=== PATIENT | male | born 1965 | race Caucasian/White ===

== ENCOUNTER 2018-05-16 07:54 | Emergency (ER) | payer OTHER ==
[~2018-05-16] VITALS: Ht 180.3 cm; Wt 102.1 kg
[2018-05-16] MEDS ORDERED: IPRATRPIUM/ALBUTEROL 0.5/2.5MG 3 ML NEBU. NEB ONE (08:15)
[2018-05-16] MEDS ORDERED: methylPREDNISolone SOD SUCC PF 125 MG/2 ML VIAL. IV ONE (08:15)
[2018-05-16] MEDS ORDERED: IV NORMAL SALINE 1000ML BAG 1,000 ML IV ONE (08:15)
--- NOTE | 2018-05-16 08:25 | PHYS DOC ---
Past Medical History Past Medical History: Other Additional Past Medical Histor: gout Past Surgical History: Appendectomy Additional Past Surgical Histo: colon resection "1 foot taken out" Alcohol Use: Occasionally Drug Use: None Adult General Chief Complaint Chief Complaint: Congestion HPI HPI Patient is a 53 year old male with history of hypertension presenting with 3 weeks of cough occasional yellow sputum he has been on azithromycin for 4 days it's not helping he has an inhaler that does not help he has really been sick for 3 weeks but it is worse the last 2 days spell so shortness of breath really no chest pain he did have a fever here in the emergency room the symptoms are moderate there slowly worsening with time no other exacerbating factors. Review of Systems Review of Systems Constitutional: Eyes: Denies change in visual acuity, redness, or eye pain [] HENT: Respiratory: Cardiovascular: No additional information not addressed in HPI [] Musculoskeletal: Denies back pain or joint pain [] Integument: Denies rash or skin lesions [] Neurologic: Denies headache, focal weakness or sensory changes [] Endocrine: Denies polyuria or polydipsia [] All other systems were reviewed and found to be within normal limits, except as documented in this note. Current Medications Current Medications Current Medications Medications (Trade) Dose Ordered Sig/Nnamdi Start Time Stop Time Status Last Admin Dose Admin Acetaminophen (Tylenol) 1,000 mg 1X ONCE 05/16/18 08:45 05/16/18 08:47 DC 05/16/18 08:52 1,000 MG Albuterol/ Ipratropium (Duoneb) 3 ml 1X ONCE 05/16/18 08:15 05/16/18 08:16 DC 05/16/18 08:32 3 ML Ketorolac Tromethamine (Toradol 15mg Vial) 15 mg 1X ONCE 05/16/18 08:45 05/16/18 08:47 DC 05/16/18 08:51 15 MG Methylprednisolone Sodium Succinate (SOLU-Medrol 125MG VIAL) 125 mg 1X ONCE 05/16/18 08:15 05/16/18 08:16 DC 05/16/18 08:52 125 MG Sodium Chloride 1,000 ml @ 1,000 mls/hr 1X ONCE 05/16/18 08:15 05/16/18 09:14 DC 05/16/18 08:51 1,000 MLS/HR Allergies Allergies Allergies Coded Allergies Type Severity Reaction Last Updated Verified Metronidazole HCl Allergy Swelling 07/22/13 Yes metronidazole Allergy Swelling 07/22/13 Yes Physical Exam Physical Exam Constitutional: Well developed, well nourished, mild distress, non-toxic appearance. [] HENT: Normocephalic, atraumatic, bilateral external ears normal, oropharynx moist, no oral exudates, nose normal. [] Eyes: PERRLA, EOMI, conjunctiva normal, no discharge. [] Neck: Normal range of motion, no tenderness, supple, no stridor. [] Cardiovascular: Mild tachycardia no definite murmurs Lungs & Thorax: Rhonchi left lung base mild coarse breath sounds bilaterally Abdomen: Bowel sounds normal, soft, no tenderness, no masses, no pulsatile masses. [] Skin: Warm, dry, no erythema, no rash. [] Back: No tenderness, no CVA tenderness. [] Extremities: No tenderness, no cyanosis, no clubbing, ROM intact, no edema. [] Tenderness Neurologic: Alert and oriented X 3, normal motor function, normal sensory function, no focal deficits noted. [] Psychologic: Affect normal, judgement normal, mood normal. [] Current Patient Data Vital Signs Vital Signs Date Time Temp Pulse Resp B/P (MAP) Pulse Ox O2 Delivery O2 Flow Rate FiO2 05/16/18 08:36 101.1 115 30 176/98 (124) 96 Room Air 101.1 Lab Values Laboratory Tests Test 05/16/18 08:25 05/16/18 09:24 White Blood Count 7.8 x10^3/uL (4.0-11.0) Red Blood Count 4.41 x10^6/uL (4.30-5.70) Hemoglobin 12.9 g/dL (13.0-17.5) L Hematocrit 38.5 % (39.0-53.0) L Mean Corpuscular Volume 87 fL (79-100) Mean Corpuscular Hemoglobin 29 pg (25-35) Mean Corpuscular Hemoglobin Concent 33 g/dL (31-37) Red Cell Distribution Width 13.7 % (11.5-14.5) Platelet Count 259 x10^3/uL (140-400) Neutrophils (%) (Auto) 71 % (31-73) Lymphocytes (%) (Auto) 12 % (24-48) L Monocytes (%) (Auto) 14 % (0-9) H Eosinophils (%) (Auto) 3 % (0-3) Basophils (%) (Auto) 1 % (0-3) Neutrophils # (Auto) 5.5 x10^3uL (1.8-7.7) Lymphocytes # (Auto) 0.9 x10^3/uL (1.0-4.8) L Monocytes # (Auto) 1.1 x10^3/uL (0.0-1.1) Eosinophils # (Auto) 0.2 x10^3/uL (0.0-0.7) Basophils # (Auto) 0.0 x10^3/uL (0.0-0.2) Sodium Level 137 mmol/L (136-145) Potassium Level 4.0 mmol/L (3.5-5.1) Chloride Level 103 mmol/L (98-107) Carbon Dioxide Level 27 mmol/L (21-32) Anion Gap 7 (6-14) Blood Urea Nitrogen 14 mg/dL (8-26) Creatinine 1.2 mg/dL (0.7-1.3) Estimated GFR (Cockcroft-Gault) 62.9 BUN/Creatinine Ratio 12 (6-20) Glucose Level 112 mg/dL (70-99) H Lactic Acid Level 1.2 mmol/L (0.4-2.0) Calcium Level 8.8 mg/dL (8.5-10.1) Total Bilirubin 0.3 mg/dL (0.2-1.0) Aspartate Amino Transferase (AST) 25 U/L (15-37) Alanine Aminotransferase (ALT) 40 U/L (16-63) Alkaline Phosphatase 88 U/L (46-116) Troponin I Quantitative < 0.017 ng/mL (0.000-0.055) SX-Gyv-F-Type Natriuretic Peptide 16 pg/mL (0-124) Total Protein 7.6 g/dL (6.4-8.2) Albumin 3.7 g/dL (3.4-5.0) Albumin/Globulin Ratio 0.9 (1.0-1.7) L Influenza Type A Antigen Negative (NEGATIVE) Influenza Type B Antigen Positive (NEGATIVE) Laboratory Tests 05/16/18 08:25 Laboratory Tests 05/16/18 08:25 EKG EKG []Suspect sinus tachycardia rate of [address] changes noted laterally no acute ischemic changes otherwise noted. Radiology/Procedures Radiology/Procedures [] Impressions: FINDINGS: Heart is normal in size. Small linear opacity seen in the right lung base. Otherwise, lungs are clear. No pneumothorax or pleural effusion. Visualized bony thorax is within normal limits. IMPRESSION: Minimal right basilar subsegmental atelectasis. Electronically signed by: Reggie Ruano DO (05/16/2018 8:40 AM) [facility] DICTATED and SIGNED BY: REGGIE RUANO DO DATE: 05/16/1868 Course & Med Decision Making Course & Med Decision Making Pertinent Labs and Imaging studies reviewed. (See chart for details) []53-year-old male appears younger than stated age history of hypertension presenting with 3 weeks of upper respiratory symptoms here his cough rhonchi left lung base fever in the emergency room usual workup chest x-ray blood cultures lactate rule out pulmonary edema which seems less likely based on history albuterol was given Solu-Medrol was given. Final plan: Influenza noted to be positive patient was feeling much better after treatment in the emergency room heart rate came down into the 90s he was able to feel much less short of breath on my reevaluation he was no longer tachypneic. He is well-appearing I think he can go home with Tamiflu and prednisone he is finishing azithromycin right now no pneumonia seen on x-ray think this is more likely influenza with reactive airway disease. Return precautions discussed Dragon Disclaimer Dragon Disclaimer This electronic medical record was generated, in whole or in part, using a voice recognition dictation system. Departure Departure Impression: Primary Impression: Influenza Disposition: 01 HOME, SELF-CARE Condition: STABLE Referrals: MELISSA ASTUDILLO MD (PCP) Scripts Prednisone (PREDNISONE) 50 Mg Tablet 1 TAB PO DAILY, #5 TAB Prov: HANS SAENZ MD 05/16/18 Oseltamivir Phosphate (TAMIFLU) 75 Mg Capsule 1 CAP PO BID, #10 CAP Prov: HANS SAENZ MD 05/16/18 HANS SAENZ MD May 16, 2018 08:25
[2018-05-16 08:36] VITALS: BP 176/98
[2018-05-16 08:41] LABS: BASO % 1 % (0-3); EOS # 0.2 x10^3/uL (0.0-0.7); EOS % 3 % (0-3); HEMATOCRIT 38.5 % (39.0-53.0); HEMOGLOBIN 12.9 g/dL (13.0-17.5); LYMPH # 0.9 x10^3/uL (1.0-4.8); LYMPH % 12 % (24-48); MEAN CORPUSCULAR HEMOGLOBIN 29 pg (25-35); MEAN CORPUSCULAR HGB CONC 33 g/dL (31-37); MEAN CORPUSCULAR VOLUME 87 fL (79-100); MONO # 1.1 x10^3/uL (0.0-1.1); MONO % 14 % (0-9); NEUT # 5.5 x10^3uL (1.8-7.7); NEUT % 71 % (31-73); PLATELET COUNT 259 x10^3/uL (140-400); RED BLOOD COUNT 4.41 x10^6/uL (4.30-5.70); RED CELL DISTRIBUTION WIDTH 13.7 % (11.5-14.5); WHITE BLOOD COUNT 7.8 x10^3/uL (4.0-11.0)
[2018-05-16] MEDS ORDERED: ACETAMINOPHEN 500 MG TABLET PO ONE (08:45)
[2018-05-16] MEDS ORDERED: KETOROLAC 15 MG/ML VIAL. IV ONE (08:45)
--- NOTE | 2018-05-16 08:45 | RAD ---
Indication:COUGH, SOA, FEVER X3 WEEKS TECHNIQUE:Portable AP chest X-ray COMPARISON:None FINDINGS: Heart is normal in size. Small linear opacity seen in the right lung base. Otherwise, lungs are clear. No pneumothorax or pleural effusion. Visualized bony thorax is within normal limits. IMPRESSION: Minimal right basilar subsegmental atelectasis. Electronically signed by: Reggie Gleason DO (05/16/2018 8:40 AM) [facility]
[2018-05-16 08:51] LABS: CALCIUM 8.8 mg/dL (8.5-10.1); CREATININE 1.2 mg/dL (0.7-1.3); GFR 62.9
[2018-05-16 08:57] LABS: ALBUMIN 3.7 g/dL (3.4-5.0); ALBUMIN/GLOBULIN RATIO 0.9 (1.0-1.7); TOTAL BILIRUBIN 0.3 mg/dL (0.2-1.0); TOTAL PROTEIN 7.6 g/dL (6.4-8.2)
[2018-05-16 10:07] LABS: INFLUENZA A PATIENT NEGATIVE (NEGATIVE); INFLUENZA B PATIENT POSITIVE (NEGATIVE)
[2018-05-16] MEDS ORDERED: OSEL75CA PO (10:10)
[2018-05-16] MEDS ORDERED: PRED50TA PO (10:10)
--- NOTE | 2018-05-18 06:56 | EKG ---
[facility] [address] [place] [address] Test Date: 2018-05-16 Test Time: 08:52:09 Pat Name: RYAN ALBRECHT Department: Room: Gender: M Human Resources Records Clerk: : 1965 Requested By: HANS SAENZ Order Number: [id number] Reading MD: Hollis Robbins MD Measurements Intervals [place] Rate: 104 P: -134 DE: 110 QRS: -2 QRSD: 92 T: 67 QT: 310 QTc: 413 Interpretive Statements SR Electronically Signed On 05-18-2018 10:08:29 [employer] by Hollis Robbins MD
== END 2018-05-16 10:54 | disposition home or self-care (01) ==
LOC: ER 07:54
DX: J11.1 Influenza due to unidentified influenza virus with other respiratory manifestations (principal); Z90.49 Acquired absence of other specified parts of digestive tract; Z88.8 Allergy status to other drugs, medicaments and biological substances
CPT/HCPCS: 36415; 71045; 80053; 83605; 83880; 84484; 85025; 87040; 87804; 93005; 94640; 96374; 96375; 99284; J1885; J2930; J7030; J7620

== ENCOUNTER 2018-09-18 16:25 | Emergency (ER) | payer OTHER ==
[~2018-09-18] VITALS: Ht 172.7 cm; Wt 93.0 kg
[~2018-09-18 16:25] MED LIST: OSEL75CA PO; PRED50TA PO
--- NOTE | 2018-09-18 17:18 | PHYS DOC ---
Past Medical History Past Medical History: Hypertension Additional Past Medical Histor: gout, Low Testosterone Past Surgical History: Appendectomy, Cholecystectomy Additional Past Surgical Histo: colon resection "1 foot taken out" Alcohol Use: None Drug Use: None Adult General Chief Complaint Chief Complaint: FOREIGN BODY HPI HPI Patient is a 53 year old male with history of hypertension who presents to the ED today concerned he could have his testosterone needle stuck in his right thigh, patient states he was injecting testosterone today when he believes the needle remained in the thigh. Review of Systems Review of Systems Constitutional: Denies fever or chills [] Musculoskeletal: Denies back pain or joint pain [] Integument: Reports testosterone needle stuck in his right thigh Neurologic: Denies headache, focal weakness or sensory changes [] All other systems were reviewed and found to be within normal limits, except as documented in this note. Current Medications Current Medications Current Medications Medications (Trade) Dose Ordered Sig/Nnamdi Start Time Stop Time Status Last Admin Dose Admin Diphtheria/ Tetanus/Acell Pertussis (Boostrix) 0.5 ml ONCE ONCE 09/18/18 17:30 09/18/18 17:31 DC Allergies Allergies Allergies Coded Allergies Type Severity Reaction Last Updated Verified Metronidazole HCl Allergy Swelling 07/22/13 Yes metronidazole Allergy Swelling 07/22/13 Yes Physical Exam Physical Exam Constitutional: Well developed, well nourished, no acute distress, non-toxic appearance. [] Skin: Right mid ventral thigh with a puncture wound consistent with needlestick. No obvious palpable needle noted. Neurovascular exam is intact to the right thigh and right lower extremity. +2 right pedal pulse. Cap refill less than 2 seconds the right lower extremity. Back: No tenderness, no CVA tenderness. [] Extremities: No tenderness, no cyanosis, no clubbing, ROM intact, no edema. [] Neurologic: Alert and oriented X 3, normal motor function, normal sensory function, no focal deficits noted. [] Psychologic: Affect normal, judgement normal, mood normal. [] Current Patient Data Vital Signs Vital Signs Date Time Temp Pulse Resp B/P (MAP) Pulse Ox O2 Delivery O2 Flow Rate FiO2 09/18/18 16:30 98.3 89 17 188/113 (138) 97 Room Air 98.3 EKG EKG [] Radiology/Procedures Radiology/Procedures [] Course & Med Decision Making Course & Med Decision Making Pertinent Labs and Imaging studies reviewed. (See chart for details) This is a 53-year-old male patient presenting to the ED today concerned his t estosterone needle stuck in the right thigh. Tetanus updated. Right femur xrays are negative. Nursing staff was assessing the syringe patient used and found the need in the syringe safety cap. Patient was given tetanus shot and discharged to home. Dragon Disclaimer Dragon Disclaimer This electronic medical record was generated, in whole or in part, using a voice recognition dictation system. Departure Departure Impression: Primary Impression: Foreign body in skin Disposition: 01 HOME, SELF-CARE Condition: STABLE Referrals: MELISSA ASTUDILLO MD (PCP) Follow up with your doctor in 1-2 weeks as needed Patient Instructions: Foreign Body-Brief Additional Instructions: You were evaluated in the emergency room, there is no needle in your right thigh. Keep the area clean and dry. Your tetanus was updated. Follow-up with your doctor as needed. GAURAV ATKINS APRN September 18, 2018 17:18
[2018-09-18] MEDS ORDERED: DIPHTH,PERTUSS(ACELL),TET TOX 0.5 ML DISP.SYRIN. VAX IM ONE (17:30)
[2018-09-18 17:38] VITALS: BP 169/87
--- NOTE | 2018-09-19 07:58 | RAD ---
Examination: 2 views of the right femur HISTORY: History of needle broke in the thigh. COMPARISON: None available FINDINGS: The alignment of the femur grossly appears unremarkable. There is no acute fracture identified. No evidence of radiopaque foreign body within the visualized thigh region. IMPRESSION: No evidence of radiopaque foreign body identified in the region. Electronically signed by: Lionel Greer MD (09/19/2018 7:55 AM) [facility]
== END 2018-09-18 17:55 | disposition home or self-care (01) ==
LOC: ER 16:25
DX: S70.351A Superficial foreign body, right thigh, initial encounter (principal); I10 Essential (primary) hypertension; M10.9 Gout, unspecified; Z88.8 Allergy status to other drugs, medicaments and biological substances; X58.XXXA Exposure to other specified factors, initial encounter; Y93.89 Activity, other specified; Y92.89 Other specified places as the place of occurrence of the external cause; Y99.8 Other external cause status
CPT/HCPCS: 73552; 90471; 90715; 99284

== ENCOUNTER 2020-07-15 09:41 | Emergency (ER) | payer BC ==
[~2020-07-15] VITALS: Ht 170.2 cm; Wt 95.0 kg
[2020-07-15] MEDS ORDERED: ORPHENADRINE CITRATE 60 MG/2 ML VIAL. IM ONE (10:00)
[2020-07-15] MEDS ORDERED: KETOROLAC 60 MG/2 ML VIAL. IM ONE (10:00)
--- NOTE | 2020-07-15 10:03 | ED.ADGEN ---
Past Medical History Past Medical History: Hypertension Additional Past Medical Histor: gout, Low Testosterone Past Surgical History: Appendectomy, Cholecystectomy Additional Past Surgical Histo: colon resection "1 foot taken out" Smoking Status: Never Smoker Alcohol Use: None Drug Use: None General Adult EDM: Chief Complaint: BACK PAIN - NO INJURY HPI: HPI: Patient is a 55-year-old previously healthy male who presents to the emergency room complaining of left-sided thoracic back pain. He states that this started during physical therapy a couple weeks ago and he has tried multiple things without any relief. He states that he has a strong family history of multiple cancers and recently had a friend from bone cancer in the back. He wants to make sure that he does not have any kind of cancer. He is able to ambulate. He denies any numbness or weakness. He has never been an IV drug user. He does not have any kind of fever. Pain does limit his mobility. There is some radiation of the pain up into his back. He denies any midline pain. Review of Systems: Review of Systems: Complete ROS is negative unless otherwise documented in HPI Current Medications: Current Medications Medications (Trade) Dose Ordered Sig/Nnamdi Start Time Stop Time Status Last Admin Dose Admin Ketorolac Tromethamine (Toradol Im) 60 mg 1X ONCE 07/15/20 10:00 07/15/20 10:01 DC 07/15/20 10:16 60 MG Orphenadrine Citrate (Norflex) 60 mg 1X ONCE 07/15/20 10:00 07/15/20 10:01 DC Allergies: Allergies: Allergies Coded Allergies Type Severity Reaction Last Updated Verified Metronidazole HCl Allergy Severe Swelling 06/14/20 Yes metronidazole Allergy Severe Swelling 06/14/20 Yes Physical Exam: PE: General: Awake, alert, NAD. Well Nourished, well hydrated. Cooperative HEENT: Atraumatic, EOMI, PERRL, airway patent, moist oral mucosa Neck: Supple, trachea midline Respiratory: CTA bilaterally, normal effort, no wheezing/crackles CV: RRR, no murmur, cap refill <2 GI: Soft, nondistended, nontender, no masses MSK: Left mid back tenderness with muscle spasm, no midline thoracic or lumbar spinal tenderness Skin: Warm, dry, intact Neuro: A&O x3, speech NL, sensory and motor grossly intact, no focal deficits Psych: Normal affect, normal mood, not suicidal or homicidal Current Patient Data: Vital Signs: Vital Signs Date Time Temp Pulse Resp B/P (MAP) Pulse Ox O2 Delivery O2 Flow Rate FiO2 07/15/20 09:45 98.2 82 18 172/84 (113) 96 Room Air 98.2 EKG: EKG: [] Heart Score: C/O Chest Pain: N/A Risk Factors: Risk Factors: DM, Current or recent (<one month) smoker, HTN, HLP, family history of CAD, obesity. Risk Scores: Score 0 - 3: 2.5% MACE over next 6 weeks - Discharge Home Score 4 - 6: 20.3% MACE over next 6 weeks - Admit for Clinical Observation Score 7 - 10: 72.7% MACE over next 6 weeks - Early Invasive Strategies Radiology/Procedures: Radiology/Procedures: [] Course & Med Decision Making: Course & Med Decision Making Pertinent Labs and Imaging studies reviewed. (See chart for details) Patient is a 55-year-old male who presents to the Emergency room with non- traumatic back pain. Patient denies bowel incontinence, urinary retention, fever, numbness, weakness. On exam, patient does not have a neurologic deficits, saddle anesthesia, gait difficulty, signs of trauma, or wounds near area of pain. Patient does not have a history of cancer or prolonged steroid use. At this time, patient does not have any signs, symptoms, or risk factors of emergent causes of back pain making cauda equina, spinal abscess, transverse myelitis, fractures, and other causes of emergent back pain highly unlikely. I did order x-rays of his back and ribs to ensure no kind of lesions were seen as patient is very concerned about family history of cancer. X-rays were unremarkable patient will be treated symptomatically. Patient's test results and vitals while in the ED were fully reviewed and discussed with the patient. Patient is stable and at this time does not need admission to the hospital. We have discussed strict return precautions and the importance of following up with their Primary Care Physician. Patient stated understanding and was given an opportunity to ask any questions. Patient is in agreement with plan. Nadiya Disclaimer: Nadiya Disclaimer: This electronic medical record was generated, in whole or in part, using a voice recognition dictation system. Departure Departure Impression: Primary Impression: Back pain Disposition: 01 DC HOME SELF CARE/HOMELESS Condition: STABLE Referrals: MELISSA ASTUDILLO MD (PCP) Patient Instructions: Back Pain, Adult Scripts Diazepam (VALIUM) 5 Mg Tablet 5 MG PO BID for 1 Day, #2 TAB Prov: KAMILLA EDMOND MD 07/15/20 Methocarbamol (METHOCARBAMOL) 500 Mg Tablet 500 MG PO QID PRN for MUSCLE PAIN for 5 Days, #20 TAB Prov: KAMILLA EDMOND MD 07/15/20 KAMILLA EDMOND MD Jul 15, 2020 10:03
--- NOTE | 2020-07-15 10:26 | RAD ---
EXAM: Thoracic spine, 3 views; lumbar spine, 3 views. HISTORY: Pain. COMPARISON: None. FINDINGS: Thoracic spine: 3 views of the thoracic spine are obtained. There is mild thoracic kyphosis. There is no significant listhesis. There is degenerative endplate remodeling at multiple levels. There is als o endplate remodeling with disc space narrowing and spurring at the lower cervical levels, not formal ly assessed on this exam. There is S-shaped thoracolumbar scoliosis with, with dextrocurvature center ed at the thoracic levels. Lumbar spine: 3 views of the lumbar spine are obtained. There is S-shaped thoracolumbar scoliosis, wi th levocurvature centered at L3. There is no listhesis. The vertebral bodies are normal in height. Th ere is endplate remodeling and facet arthropathy at the lower lumbar levels. IMPRESSION: 1. Mild multilevel degenerative change. 2. S-shaped thoracolumbar scoliosis. 3. No acute osseous finding. Electronically signed by: Muna Spear MD (07/15/2020 10:23 AM) [id number]
--- NOTE | 2020-07-15 10:27 | RAD ---
EXAM: Chest, 2 views. HISTORY: Pain with inhalation. COMPARISON: 05/06/2018 FINDINGS: 2 views of the chest are obtained. There is suspected bilateral infrahilar atelectasis. The re is no infiltrate, protrusion or pneumothorax. The heart is normal in size. There is thoracolumbar scoliosis. IMPRESSION: Suspected bilateral infrahilar atelectasis. Electronically signed by: Muna Spear MD (07/15/2020 10:24 AM) [id number]
[2020-07-15] MEDS ORDERED: METH-561 PO (11:10)
[2020-07-15] MEDS ORDERED: DIAZ5TAB PO (11:29)
[2020-07-15 11:39] VITALS: BP 176/87
== END 2020-07-15 11:39 | disposition home or self-care (01) ==
LOC: ER 09:41
DX: M54.6 Pain in thoracic spine (principal); I10 Essential (primary) hypertension; Z90.89 Acquired absence of other organs; Z90.49 Acquired absence of other specified parts of digestive tract; Z98.890 Other specified postprocedural states; Z88.8 Allergy status to other drugs, medicaments and biological substances; Z85.3 Personal history of malignant neoplasm of breast
CPT/HCPCS: 71046; 72072; 72100; 96372; 99284; J1885

== ENCOUNTER → 2021-05-06 | Outpatient (CLI) | payer BC ==
[~2021-05-06] MED LIST changes: +DIAZ5TAB PO; +METH-561 PO
--- NOTE | 2021-05-07 12:24 | KCIC ---
AP and Lateral Views of the Chest 05/06/2021 3:49 PM Indication: Reason: bronchitis, cough, post nasal drainage over 1 month + Comparison: Chest radiograph July 15, 2020 Findings: Dextroscoliosis of the thoracic spine noted. Heart size is normal. No pneumothorax, pleural effusion, or focal infiltrate is seen. No acute osseous changes are identified. IMPRESSION: No evidence of acute cardiopulmonary process Electronically signed by: Magdi Carver MD (05/07/2021 12:21 PM) [id number]
== END ==
LOC: KCIC 15:48
PROVIDERS: ATTEND Family Medicine
DX: M41.84 Other forms of scoliosis, thoracic region (principal); J01.00 Acute maxillary sinusitis, unspecified; J40 Bronchitis, not specified as acute or chronic; R05.9 Cough, unspecified; R09.82 Postnasal drip
CPT/HCPCS: 71046